=== PATIENT | female | born 1980 | race Caucasian/White ===

== ENCOUNTER 2017-04-20 14:23 | Emergency (ER) | payer OTHER ==
[2017-04-20 14:30] VITALS: BP 138/92
--- NOTE | 2017-04-20 15:39 | ED Physician Documentation ---
PD HPI SKIN - Stated complaint Stated Complaint: FACE RED,SWELLING - Chief complaint Chief Complaint: Wound - History obtained from History obtained from: Patient - History of Present Illness Timing - onset: Today, Last night Timing - details: Abrupt onset, Still present Location: Face (she has eczema and uses lotions and essential oils for it. She used a different essential oils mix last night and felt buring of skin and then worse redness/swelling after few hours in area she had applied it around nose. Worse today and is having some weeping yellow with swelling today.) Quality / character: Painful, Burning, Discolored (red), Swelling, Draining Associated symptoms: No: Fever, Myalgias Contributing factors: Exposed to medication (topical). No: Exposed to food Similar symptoms before: Diagnosis (eczema, but is much worse where she applied the oils.) Recently seen: Not recently seen Review of Systems Constitutional: denies: Fever, Chills Nose: denies: Rhinorrhea / runny nose, Congestion Throat: denies: Sore throat Respiratory: denies: Cough GI: denies: Nausea, Vomiting Skin: reports: Rash Neurologic: denies: Generalized weakness PD PAST MEDICAL HISTORY - Past Medical History Past Medical History: Yes Respiratory: Asthma Derm: Eczema - Past Surgical History Past Surgical History: Yes /[employer]: section HEENT: Tonsil/Adenoidectomy - Present Medications Home Medications: Ambulatory Orders Medication Instructions Recorded Confirmed Ibuprofen [Motrin] 800 mg PO Q8H PRN #30 tablet 05/01/16 Betamethasone Valerate 1 applic TP BID #15 cream..g. 04/20/17 Mupirocin 1 applic TP TID #15 oint...g. 04/20/17 - Allergies Allergies/Adverse Reactions: Allergies Allergy/AdvReac Type Severity Reaction Status Date / Time clarithromycin [From Biaxin] Allergy Unknown Verified 05/01/16 18:00 - Social History Does the pt smoke?: No Smoking Status: Never smoker Does the pt drink ETOH?: No Does the pt have substance abuse?: No - Immunizations Immunizations are current?: Yes - POLST Patient has POLST: No PD ED PE NORMAL - Vitals Vital signs reviewed: Yes - General General: Alert and oriented X 3, No acute distress, Well developed/nourished - HEENT HEENT: Ears normal, Pharynx benign - Neck Neck: Supple, no meningeal sign, No adenopathy - Derm Derm: Normal color, Warm and dry, Other (face with some general redness eyebrows , chin, cheeks, but also with worse redness, swelling, tender of skin with superficial weeping of yellow in the area beside nose and in creases there on both sides. Nares themselves are looking okay. Some redness with thickened skin on both volar wrists that is longer term per patient. ) Results - Vitals Vitals: Oxygen O2 Source Room air PD MEDICAL DECISION MAKING - ED course Complexity details: considered differential (redness, swelling, weeping in area she put new ointment,oils so presume local reaction to it, on top of underlying eczema), d/w patient Departure - Departure Disposition: 01 Home, Self Care Clinical Impression: Contact dermatitis and other eczema due to other specified agent Eczema Qualifiers: Eczema type: unspecified Qualified Code(s): L30.9 - Dermatitis, unspecified Condition: Stable Record reviewed to determine appropriate education?: Yes Instructions: ED Dermatitis Atopic Eczema, ED Dermatitis Contact Prescriptions: Betamethasone Valerate 1 applic TP BID #15 cream..g. Mupirocin 1 applic TP TID #15 oint...g. Comments: This looks to be mostly the contact dermatitis on top of the underlying eczema. I would clean with your usual soap and water 2-3 times a day and apply betamethasone steroid for up to a week. You can then use your typical [employer] butter or cooking a cream that you commonly use on top of that. You can use the betamethasone on your wrist as well. If the crustiness and weeping on the face has not improved within a day or 2 or if it expands, and there may be some bacterial infection as well and at the mupirocin antibiotic ointment. Recheck if still not improved over the next several days. Discharge Date/Time: 04/20/17 16:27
== END 2017-04-20 16:27 | disposition home or self-care (01) ==
LOC: ED 14:23
DX: L24.89 Irritant contact dermatitis due to other agents (principal); J45.909 Unspecified asthma, uncomplicated
CPT/HCPCS: 99283